=== PATIENT | male | born 1965 | race Caucasian/White ===

== ENCOUNTER 2016-11-27 14:46 | Emergency (ER) | payer OTHER ==
[2016-11-27] MEDS ORDERED: DIPH/PERTUSS(ACELL)/TETANUS VAC/PF 0.5 ML SYR (>=10YO) IM ONE (15:10)
[2016-11-27] MEDS ORDERED: ACETAMINOPHEN 325 MG TABLET PO ONE (15:10)
--- NOTE | 2016-11-27 15:20 | ER Document Report ---
ED Medical Screen (RME) - General Chief Complaint: Head Injury without LOC Stated Complaint: HEAD INJURY Time Seen by Provider: 11/27/16 15:09 Notes: Patient is a 51-year-old male who presents after a hook struck him on the side of his head. No LOC. Unknown tetanus shot. PE: AAOx3. Dried blood on the head. Patient in c-collar. 5 out of 5 strength and sensation intact in all 4 extremities. I have greeted and performed a rapid initial assessment of this patient. A comprehensive ED assessment and evaluation of the patient, analysis of test results and completion of the medical decision making process will be conducted by additional ED providers.
--- NOTE | 2016-11-27 15:40 | RADIOLOGY REPORT (SQ) ---
EXAM DESCRIPTION: CT CERVICAL SPINE WITHOUT COMPLETED DATE/TIME: 11/27/2016 3:32 pm REASON FOR STUDY: head injury COMPARISON: None. TECHNIQUE: Axial images acquired through the cervical spine without intravenous contrast. Images re viewed with lung, soft tissue and bone windows. Reconstructed coronal and sagittal MPR images review ed. Images stored on PACS. All CT scanners at this facility use dose modulation, iterative reconstruction, and/or weight based d osing when appropriate to reduce radiation dose to as low as reasonably achievable (ALARA). [facility]: Dose Right [facility]: CareDose [facility]: Dose Right [facility]: Teradose 4D [facility]: Smart [employer] RADIATION DOSE: Up-to-date CT equipment and radiation dose reduction techniques were employed. CTDIv ol: 17.5 mGy. DLP: 377 mGy-cm. mGy. LIMITATIONS: None. FINDINGS: ALIGNMENT: Anatomic. MINERALIZATION: Normal. VERTEBRAL BODIES: No fractures or dislocation. DISCS: No significant disc disease. FACETS, LATERAL MASSES, POSTERIOR ELEMENTS: No fractures. No dislocation. No acute findings. 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 HARDWARE: None in the spine. VISUALIZED RIBS: No fractures. LUNG APICES AND SOFT TISSUES: Emphysematous changes with scarring. OTHER: No other significant finding. IMPRESSION: NO ACUTE OR SIGNIFICANT FINDINGS IN THE CERVICAL SPINE. TECHNICAL DOCUMENTATION: JOB ID: [id number] Quality ID # [id number]: Final reports with documentation of one or more dose reduction techniques (e.g., Au tomated exposure control, adjustment of the mA and/or kV according to patient size, use of iterative reconstruction technique) 2010 [employer]- All Rights Reserved
--- NOTE | 2016-11-27 15:42 | RADIOLOGY REPORT (SQ) ---
EXAM DESCRIPTION: CT HEAD WITHOUT COMPLETED DATE/TIME: 11/27/2016 3:32 pm REASON FOR STUDY: head injury COMPARISON: None. TECHNIQUE: Axial images acquired through the brain without intravenous contrast. Images reviewed wi th bone, brain and subdural windows. Images stored on PACS. All CT scanners at this facility use dose modulation, iterative reconstruction, and/or weight based d osing when appropriate to reduce radiation dose to as low as reasonably achievable (ALARA). [facility]: Dose Right [facility]: CareDose [facility]: Dose Right [facility]: Teradose 4D [facility]: Smart [employer] RADIATION DOSE: Up-to-date CT equipment and radiation dose reduction techniques were employed. CTDIv ol: 64.6 mGy. DLP: 1163 mGy-cm. mGy. LIMITATIONS: None. FINDINGS: VENTRICLES: Normal size and contour. CEREBRUM: No masses. No hemorrhage. No midline shift. Normal johnston/white matter differentiation. N o evidence for acute infarction. CEREBELLUM: No masses. No hemorrhage. No alteration of density. No evidence for acute infarction. EXTRAAXIAL SPACES: No fluid collections. No masses. ORBITS AND GLOBE: No intra- or extraconal masses. Normal contour of globe without masses. CALVARIUM: No fracture. PARANASAL SINUSES: No fluid or mucosal thickening. SOFT TISSUES: Right-sided scalp swelling. OTHER: No other significant finding. IMPRESSION: NORMAL BRAIN CT WITHOUT CONTRAST. RIGHT-SIDED SCALP SWELLING. NO UNDERLYING FRACTURE. TECHNICAL DOCUMENTATION: JOB ID: [id number] Quality ID # [id number]: Final reports with documentation of one or more dose reduction techniques (e.g., Au tomated exposure control, adjustment of the mA and/or kV according to patient size, use of iterative reconstruction technique) 2010 [employer]- All Rights Reserved
--- NOTE | 2016-11-27 15:49 | ER Document Report ---
ED General - General Chief Complaint: Head Injury Stated Complaint: HEAD INJURY Time Seen by Provider: 11/27/16 15:09 Mode of Arrival: Ambulatory Information source: Patient Notes: 51-year-old man with no medical problems who presents to the emergency room with head trauma. Patient was out in his backyard working with the tractor trying to pull debris out of a retention pond. A large Hook that was attached to the tractor broke off of an object in the retention pond and retracted directly back to him hitting him in the head. The patient denies loss of consciousness but says he was near syncopal. , - HPI Onset: Just prior to arrival Onset/Duration: Sudden Quality of pain: Dull Severity: Moderate Pain Level: 4 Associated symptoms: denies: Chest pain, Fever, Shortness of breath Exacerbated by: Denies Relieved by: Denies Similar symptoms previously: No Recently seen / treated by doctor: No - Related Data Allergies/Adverse Reactions: No Known Allergies Allergy (Verified 11/27/16 15:21) Past Medical History - General Information source: Patient - Social History Smoking Status: Current Every Day Smoker Cigarette use (# per day): Yes - 1 pack per day Chew tobacco use (# tins/day): No Frequency of alcohol use: None Drug Abuse: None Lives with: Spouse/Significant other Family History: Reviewed & Not Pertinent Patient has suicidal ideation: No Patient has homicidal ideation: No - Medical History Medical History: Negative Renal/ Medical History: Denies: Hx Peritoneal Dialysis Surgical Hx: Negative - Immunizations Hx Diphtheria, Pertussis, Tetanus Vaccination: No Review of Systems - Review of Systems Constitutional: See HPI EENT: See HPI Cardiovascular: No symptoms reported Respiratory: No symptoms reported Gastrointestinal: No symptoms reported Genitourinary: No symptoms reported Male Genitourinary: No symptoms reported Musculoskeletal: No symptoms reported Skin: No symptoms reported Hematologic/Lymphatic: No symptoms reported Neurological/Psychological: See HPI Physical Exam - Vital signs Vitals: Temp Pulse Resp BP Pulse Ox 98 F 81 17 125/74 98 11/27/16 15:00 11/27/16 15:00 11/27/16 15:00 11/27/16 15:00 11/27/16 15:00 Notes: Physical exam: GENERAL: 51-year-old man , no acute distress. HEAD: N ormocephalic. Patient has a laceration to the right parietal area. EYES: Pupils equal round and reactive to light, extraocular movements intact, sclera anicteric, conjunctiva are normal. ENT: TMs normal, nares patent, oropharynx clear without exudates. Moist mucous membranes. NECK: No cervical spine tenderness LUNGS: Breath sounds clear to auscultation bilaterally and equal. No wheezes rales or rhonchi. HEART: Regular rate and rhythm without murmurs, rubs or gallops. ABDOMEN: Soft, normoactive bowel sounds. No tenderness to palpation. No guarding, no rebound. No masses appreciated. EXTREMITIES: Normal range of motion, no pitting or edema. No clubbing or cyanosis. NEUROLOGICAL: Cranial nerves II through XII grossly intact. Normal speech, motor 5/5, sensory grossly intact normal gait. PSYCH: Normal mood, normal affect. SKIN: Warm, Dry, normal turgor, no rashes or lesions noted. Course - Vital Signs Vital signs: Temp Pulse Resp BP Pulse Ox 98.4 F 68 16 122/81 99 11/27/16 18:04 11/27/16 18:04 11/27/16 18:04 11/27/16 18:04 11/27/16 18:04 - Diagnostic Test Radiology reviewed: Image reviewed, Reports reviewed - CT of the head shows no fracture or bleed. CT of the cervical spine shows no fracture. Procedures - Laceration/Wound Repair Left Head Time completed: 17:34 Wound length (cm): 3 Wound's Depth, Shape: Into muscle, Irregular Laceration pre-procedure: Sterile PPE donned, Chloraprep applied, Sterile drapes applied Anesthetic type: 1% Lidocaine w/epi Volume Anesthetic (mLs): 6 Wound explored: No foreign body removed Irrigated w/ Saline (mLs): 500 Wound Debrided: Minimal Wound Repaired With: Angel Number of Sutures: 5 Layer Closure?: No Post-procedure NV exam normal: Yes Complications: No Notes: 11/27/16 17:35 Note: The patient's scalp and head area was initially cleaned with soap and water at the sink by the auto emissions technician. A 3 cm laceration to the right parietal area was identified. I then numbed the area with lidocaine and epi. I then scrubbed the surrounding site with a surgical site scrub brush with iodine. Was then explored for any foreign bodies I do not see any. The wound was then irrigated copiously under high pressure with saline. I then cleansed the area with sure cleanse and reirrigated the area. Due to the mechanism of injury and the potential for secondary infection, I attempted to vigorously scrub all the surrounding areas and then irrigated copiously within the wound. The patient was given IV Zosyn and a tetanus shot. Discharge - Discharge Clinical Impression: Concussion, Scalp laceration Condition: Stable Disposition: HOME, SELF-CARE Instructions: Concussion ([facility]), Scalp Laceration ([facility]) Additional Instructions: See the instructions on concussion as well as laceration. Keep the wound dry. Return to the emergency room in 1 week for staple removal. You may place bacitracin (sold [id number]) on the angel once daily. Return to the emergency room for worsening headache, any confusion, persistent vomiting, or any concerns or getting worse. avoid Ibuprofen and aspirin for the next 2 days. Prescriptions: Cephalexin Monohydrate [Keflex 500 mg Capsule] 500 mg PO QID #20 capsule Ondansetron HCl [Zofran 4 mg Tablet] 1 - 2 tab PO Q4H PRN #10 tablet PRN Reason: Oxycodone HCl/Acetaminophen [Percocet 5-325 mg Tablet] 1 - 2 tab PO ASDIR PRN # 15 tablet PRN Reason: Forms: Follow up (Sutures/Angel), Return to Work
[2016-11-27] MEDS ORDERED: LIDOCAINE 1%/EPINEPHRINE INJ 20 ML VIAL INJ ONE (15:50)
[2016-11-27] MEDS ORDERED: PIPERACILLIN/TAZOBACTAM 3.375 GM VIAL IV ONE (15:50)
[2016-11-27] MEDS ORDERED: LIDOCAINE 1% INJ-PF (10 MG/ML) 30 ML SDV ONE (16:25)
[2016-11-27 18:09] VITALS: BP 122/81
== END 2016-11-27 18:04 | disposition home or self-care (01) ==
LOC: ER 14:46
PROC: 0HQ0XZZ Repair Scalp Skin, External Approach (ICD-10-PCS; principal; 2016-11-27)
DX: S06.0X0A Concussion without loss of consciousness, initial encounter (principal); S09.12XA Laceration of muscle and tendon of head, initial encounter; S01.01XA Laceration without foreign body of scalp, initial encounter; W20.8XXA Other cause of strike by thrown, projected or falling object, initial encounter; Y93.H9 Activity, other involving exterior property and land maintenance, building and construction; F17.210 Nicotine dependence, cigarettes, uncomplicated
CPT/HCPCS: 12002; 99284; 90471; 96365; 70450; 72125; 90715; J2543

== ENCOUNTER 2016-12-02 09:01 | Emergency (ER) | payer OTHER ==
[2016-12-02 09:07] VITALS: BP 116/70
--- NOTE | 2016-12-02 09:27 | ER Document Report ---
ED Suture/Wound Recheck - General Chief Complaint: Staple Removal Stated Complaint: SUTURE REMOVAL Time Seen by Provider: 12/02/16 09:15 Notes: 51 yo male here for staple removal TRAVEL OUTSIDE OF THE [place] IN LAST 30 DAYS: No - HPI Treated in ED (days ago): 5 Previous ED treatment: Laceration repair - 5 Quality of pain: Throbbing Context: Injury Symptoms since procedure: No complaints Exacerbated by: Denies Relieved by: Denies - Related Data Allergies/Adverse Reactions: No Known Allergies Allergy (Verified 12/02/16 09:06) Past Medical History - General Information source: Patient - Social History Smoking Status: Current Every Day Smoker Frequency of alcohol use: None Drug Abuse: None Lives with: Family Family History: Reviewed & Not Pertinent Patient has suicidal ideation: No Patient has homicidal ideation: No - Medical History Medical History: Negative Renal/ Medical History: Denies: Hx Peritoneal Dialysis - Immunizations Hx Diphtheria, Pertussis, Tetanus Vaccination: No Review of Systems - Review of Systems Constitutional: No symptoms reported EENT: No symptoms reported Cardiovascular: No symptoms reported Respiratory: No symptoms reported Gastrointestinal: No symptoms reported Genitourinary: No symptoms reported Male Genitourinary: No symptoms reported Musculoskeletal: No symptoms reported Skin: No symptoms reported Hematologic/Lymphatic: No symptoms reported Neurological/Psychological: No symptoms reported Physical Exam - Vital signs Vitals: Temp Pulse Resp BP Pulse Ox 97.8 F 73 20 116/70 99 12/02/16 09:06 12/02/16 09:06 12/02/16 09:06 12/02/16 09:06 12/02/16 09:06 Interpretation: Normal - General General appearance: Appears well, Alert - HEENT Head: Normocephalic, Atraumatic Eyes: Normal Pupils: PERRL - Respiratory Respiratory status: No respiratory distress Chest status: Nontender Breath sounds: Normal Chest palpation: Normal - Cardiovascular Rhythm: Regular Heart sounds: Normal auscultation Murmur: No - Abdominal Inspection: Normal Distension: No distension Bowel sounds: Normal Tenderness: Nontender Organomegaly: No organomegaly - Back Back: Normal, Nontender - Extremities General upper extremity: Normal inspection, Nontender, Normal color, Normal ROM , Normal temperature General lower extremity: Normal inspection, Nontender, Normal color, Normal ROM , Normal temperature, Normal weight bearing. No: Robe's sign - Neurological Neuro grossly intact: Yes Cognition: Normal Orientation: AAOx4 Abdirizak Coma Scale Eye Opening: Spontaneous [place] Coma Scale Verbal: Oriented [place] Coma Scale Motor: Obeys Commands Abdirizak Coma Scale Total: 15 Speech: Normal Motor strength normal: LUE, RUE, LLE, RLE Sensory: Normal - Psychological Associated symptoms: Normal affect, Normal mood - Skin Skin Temperature: Warm - #5 angel intact. edges well approximated. no s/s infection Skin Moisture: Dry Skin Color: Normal Course - Re-evaluation Re-evalutation: 12/02/16 09:26 angel removed without difficulty. pt tolerated well. stable for discharge - Vital Signs Vital signs: Temp Pulse Resp BP Pulse Ox 97.8 F 73 20 116/70 99 12/02/16 09:06 12/02/16 09:06 12/02/16 09:06 12/02/16 09:06 12/02/16 09:06 Discharge - Discharge Clinical Impression: Removal of staple Condition: Stable Disposition: HOME, SELF-CARE Instructions: Staple Removal ([facility])
== END 2016-12-02 09:43 | disposition home or self-care (01) ==
LOC: ER 09:01
DX: T14.8 Other injury of unspecified body region (principal); X58.XXXD Exposure to other specified factors, subsequent encounter; F17.200 Nicotine dependence, unspecified, uncomplicated